=== PATIENT | female | born 1995 | race Caucasian/White ===

== ENCOUNTER 2023-03-22 17:29 | Emergency (ER) | payer MEDICAID, OTHER ==
[~2023-03-22] VITALS: Ht 165.1 cm; Wt 73.0 kg
[2023-03-22 17:44] VITALS: BP 118/78; O2SAT 99
[2023-03-22 18:10] LABS: HEMATOCRIT 37.6 % (36.0-48.0); HEMOGLOBIN 12.7 g/dL (12.0-16.0); MEAN CORPUSCULAR VOLUME 88.9 fL (81.0-99.0); PLATELET 295 x1000/uL (130-400); RED BLOOD CELL COUNT 4.23 mill/uL (4.2-5.4); RED CELL DISTRIBUTION WIDTH 13.6 % (11.6-14.6)
[2023-03-22 18:17] LABS: CHLORIDE 111 mEq/L (98-107)
[2023-03-22 19:49] LABS: CLARITY URINE CLEAR (CLEAR); COLOR URINE YELLOW (YELLOW); KETONES URINE NEGATIVE (NEGATIVE); LEUKOCYTE ESTERASE URINE 1+ (NEGATIVE); NITRITE URINE NEGATIVE (NEGATIVE); OCCULT BLOOD URINE NEGATIVE (NEGATIVE); PROTEIN URINE NEGATIVE (NEGATIVE); SPECIFIC GRAVITY URINE 1.026 (1.005-1.030)
[2023-03-22 19:50] VITALS: PULSE 75; RESP 19; TEMP 98.3
== END 2023-03-22 19:54 | disposition home or self-care (01) ==
LOC: ER 17:29
DX: R07.89 Other chest pain (principal)
CPT/HCPCS: 36415; 71045; 80053; 81003; 81025; 84484; 85027; 93005; 99285

== ENCOUNTER 2023-05-14 16:07 | Emergency (ER) | payer OTHER ==
[~2023-05-14] VITALS: Ht 165.1 cm; Wt 73.0 kg
[2023-05-14 16:34] VITALS: BP 128/74; RESP 16; TEMP 98.7; O2SAT 99
[2023-05-14 16:39] VITALS: PULSE 102
[2023-05-14] MEDS ORDERED: IBUP-2030 MT (18:36)
== END 2023-05-14 18:54 | disposition home or self-care (01) ==
LOC: ER 16:07
DX: M25.562 Pain in left knee (principal)
CPT/HCPCS: 73562; 81025; 99283

== ENCOUNTER 2025-04-16 20:46 | Emergency (ER) | payer OTHER ==
[~2025-04-16] VITALS: Ht 165.1 cm; Wt 68.0 kg
[~2025-04-16 20:46] MED LIST: IBUP-2030 MT
[2025-04-16 20:49] VITALS: TEMP 36.8; O2SAT 99
[2025-04-16] MEDS ORDERED: NEOM1PAC6 TP (22:44)
[2025-04-16 23:04] VITALS: BP 119/68; PULSE 79; RESP 14; O2SAT 100
== END 2025-04-16 23:08 | disposition home or self-care (01) ==
LOC: ER 20:46
DX: S90.851A Superficial foreign body, right foot, initial encounter (principal); W25.XXXA Contact with sharp glass, initial encounter; Y93.89 Activity, other specified; Y92.89 Other specified places as the place of occurrence of the external cause; Y99.8 Other external cause status
CPT/HCPCS: 73630; 99283; Z7610